=== PATIENT | female | born 1990 | race Caucasian/White ===

== ENCOUNTER 2023-11-16 10:00 | Outpatient (CLI) | payer MEDICAID, SELFPAY ==
[2023-11-16 17:48] LABS: Internal QC Validated? YES +Cl - CLEAR BKGD; Pregnancy, Urine Negative Negative; Record Kit Lot#,Urine Preg 735774
[2023-11-16 17:52] LABS: Hemoglobin A1c 7.2 % (3.8-5.6)
[2023-11-16 17:58] LABS: Anion Gap 10 (5-15); BUN 23 mg/dL (7-18); BUN/Creat Ratio 27.7 RATIO (10-20); Calcium,Total 9.4 mg/dL (8.5-10.1); Chloride 104 mmol/L (98-107); Creatinine, Serum 0.83 mg/dL (0.55-1.02); EST Glomerular Filtration Rate 83 mL/min (>60); Est Glom Filt Rate - Afr Amer 101 mL/min (>60); Glucose 149 mg/dL (74-106); Potassium 3.9 mmol/L (3.5-5.1); Sodium Level 135 mmol/L (136-145)
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
--- NOTE | 2023-11-23 08:27 | PCM.PRE.AN2 ---
ASA Classification* ASA Classification ASA Classification: 3 Assessment & Plan Anesthesia* Anesthesia Assessment Anesthesia Assessment: Discussed sedation and/or anesthesia options, risks, benefits, and alternatives with patient/parents/legal guardian/POA. Questions invited. The patient/parents/legal guardian/POA seems to understand and agrees to proceed with anesthesia plan. Reviewed the physical assessment, medical history, allergy history and patient home medications list prior to surgery/procedure/anesthetic and documented any changes. Performed airway and anesthesia risk assessments. Surgery Canceled Due to: Reason surgery canceled: NOT optimized for surgery Reason patient is NOT optimized for surgery: pt on semi glutide <7 days Anesthesia Type Anesthesia Type: MAC Pre-Assessment Diagnosis/Proposed Procedure Planned Operative Procedure(s): Laparoscopic, bilateral Salpingectomy Anesthesia History Anesthesia History - operations lieutenant: Anesthesia History - operations lieutenant Hx Hospitalization No 11/14/23 09:10 Any Problems With Anesthesia No 11/14/23 09:10 Cholinesterase deficiency No 11/14/23 09:10 You/Your Family Experience No 11/14/23 09:10 fever (hyperthermia) with Relationship Recent Exposure to Contagious Disease Does patient have nerve No 11/14/23 09:10 stimulator Patient instructed to have device shut off --Does patient have Pacemaker or ICD? When Was Last Pacemaker Check QUESTION #4 FULL TEXT: You/Your Family Experience fever (hyperthermia) with Anesthesia Last Oral Intake Last Oral intake: Last Oral Intake NPO since Meds taken in AM with sips of water? Meds patient instructed to take am of surgery PONV PONV - operations lieutenant: PONV - operations lieutenant Female Yes 11/14/23 09:10 HX of Motion Sickness No 11/14/23 09:10 HX of N/V After Surgery No 11/14/23 09:10 Non-Smoker Yes 11/14/23 09:10 Duration of Surgery greater No 11/14/23 09:10 than 60 minutes Number of Risk Factors 2 11/14/23 09:10 PONV Score Moderate Risk 11/14/23 09:10 Respiratory Assessment Respiratory Assessment - operations lieutenant: Respiratory Tract Infection Hx - operations lieutenant Hx Respiratory Tract Infection No 11/14/23 09:10 STOP Sleep Apnea STOP Sleep Apnea - operations lieutenant: STOP Sleep Apnea - operations lieutenant Hx Hypertension No 11/14/23 09:10 Hx Sleep Apnea No 11/14/23 09:10 CPAP BIPAP Do you snore loudly (louder No 11/14/23 09:10 than talking or can be heard Do you often feel tired/ No 11/14/23 09:10 fatigued/ sleepy during daytime? Has anyone observed you stop No 11/14/23 09:10 breathing during sleep? STOP Results Negative 11/14/23 09:10 QUESTION #5 FULL TEXT : Do you snore loudly (louder than talking or can be heard through closed doors)? 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 Specify any problems Hx of Preganancy in last 3 No 11/14/23 09:10 Months Nurse Filling Out Transfusion VCHRISTIN 11/14/23 09:10 & Questions: Date: 11/14/23 11/14/23 09:10 Time: 09:11 11/14/23 09:10 Patient unable to answer at this time (ie. confused, unrespo /Reproduction History /Reproductive History - operations lieutenant: /Reproductive Hx- operations lieutenant Hx Now Gestational Age (in weeks): EDC: Hx Hx Para Hx Section SAB Active Medications Active Medications: Current Medications Generic Name Dose Route Start Last Admin Trade Name Freq PRN Reason Stop Dose Admin Lactated Ringer's 1,000 mls @ 15 mls/hr 11/23/23 08:15 IV .Q48H [facility] Anesthesia Focused Assessment* Airway Assessment Mouth opens: >3 cm Mallampati Score: III Focused Labs Anesthesia Preop lab: CBC CHEMISTRY Potassium 3.9 mmol/L (3.5-5.1) 11/16/23 15:40 Sodium 135 mmol/L (136-145) L 11/16/23 15:40 BUN 23 mg/dL (7-18) H 11/16/23 15:40 Creatinine 0.83 mg/dL (0.55-1.02) 11/16/23 15:40 Glucose 149 mg/dL (74-106) H 11/16/23 15:40 COAG Urine Test Negative Negative 11/16/23 15:40 Review of Systems (Anesthesia) ROS Narrative System reviewed and no additional complaints, except as documented. [facility] Medical History Wears glasses Diabetes Seizures Hypertension Home Medications ?Medication ?Instructions ?Recorded ?Last Taken ?Type carbamazepine 200 mg tablet 200 mg PO TID 11/14/23 11/23/23 History desmopressin 0.2 mg tablet 0.2 mg PO QHS 11/14/23 11/22/23 History divalproex 250 mg tablet,delayed 250 mg PO BID 11/14/23 11/23/23 History release divalproex 500 mg tablet,delayed 500 mg PO TID 11/14/23 11/23/23 History release lisinopril 20 mg tablet 20 mg PO DAILY 11/14/23 11/23/23 History metformin 500 mg tablet,extended 500 mg PO BID 11/14/23 11/22/23 History release 24 hr tirzepatide 5 mg/0.5 mL 5 mg subcut QWEEK 11/14/23 11/22/23 History subcutaneous pen injector (Mounjaro) Allergy/AdvReac Type Severity Reaction Status Date / Time No Known Allergies Allergy Verified 11/23/23 08:16 Surgical History Hx of surgical procedure Social History Smoking Status: Never smoker
== END 2023-11-23 23:59 | disposition home or self-care (01) ==
LOC: AC 11-23 08:28 → PAT 05-01 12:38
PROVIDERS: Anesthesiology; PCP Internal Medicine; Referring Provider Obstetrics & Gynecology; Visit Provider Obstetrics & Gynecology
DX: Z01.818 Encounter for other preprocedural examination (principal); Z53.9 Procedure and treatment not carried out, unspecified reason
CPT/HCPCS: 36415; 80048; 81025; 83036

== ENCOUNTER 2023-12-27 07:59 | Day surgery (SDC) | payer MEDICAID, SELFPAY ==
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
[2023-12-27] VITALS (8 sets, daily range): BP systolic 115–126; BP diastolic 63–95; PULSE 87–94; RESP 16; TEMP 36.2–36.9; O2SAT 92–100; BMI 38.2
--- NOTE | 2023-12-27 | FALS_PTH ---
PATIENT: BENI VILLASEÑOR LOC: [facility] U#:[id number] AGE/SX: 33/F ROOM: RE12/27/[address]: Dr. Olivia Barton, MDDOB: 1990 BED: DIS: 12/27/2023 SPEC #: [id number] RECD: 12/27/23 13:17 STATUS: [place] ANGUS #: [id number] BONITA: 12/27/23 00:[address]: Olivia Barton DEPT: SURGICAL PATHOLOGY RECD BY: Bossman Winchester ENTERED: 12/27/23 13:17 SP TYPE: FALL TUBES OTHR DR: Dr. Nikki Red MD Tissues: Fallopian tube Procedures: Surgery Specimen Level II HEADER OPERATION: Bilateral laparoscopic, salpingectomy PRE-OP DIAGNOSIS: Elective sterilization TISSUE SUBMITTED: Bilateral fallopian tubes MICROSCOPIC DIAGNOSIS Bilateral fallopian tubes, salpingectomy: Bilateral fallopian tubes, no pathologic diagnosis. ASTER: 12/28/2023 MICROSCOPIC DESCRIPTION Slides are reviewed. GROSS DESCRIPTION Received in fixative is one container labeled with the patient's name and designated bilateral fallopian tubes. The specimen consists of bilateral fallopian tubes including fimbrial ends each measuring 5.0 cm in length and 0.5 cm in diameter. The fallopian tubes are not identified as right or left. Sections reveal unremarkable cut surfaces. City Collector sections are submitted in two cassettes with each cassette containing one fallopian tube. / ASTER: 12/27/2023 TC:4 CPT: 87023 x2
--- NOTE | 2023-12-27 08:25 | PCM.PRE.AN2 ---
ASA Classification* ASA Classification ASA Classification: 3 Assessment & Plan Anesthesia* Anesthesia Assessment Anesthesia Assessment: Discussed sedation and/or anesthesia options, risks, benefits, and alternatives with patient/parents/legal guardian/POA. Questions invited. The patient/parents/legal guardian/POA seems to understand and agrees to proceed with anesthesia plan. Reviewed the physical assessment, medical history, allergy history and patient home medications list prior to surgery/procedure/anesthetic and documented any changes. Performed airway and anesthesia risk assessments. Anesthesia Type Anesthesia Type: General (see written pre anesthesia record for full assessment) Anesthesia Focused Assessment* Airway Assessment Mouth opens: >3 cm Mallampati Score: III Focused Labs Anesthesia Preop lab: CBC CHEMISTRY Potassium 3.9 mmol/L (3.5-5.1) 11/16/23 15:40 Sodium 135 mmol/L (136-145) L 11/16/23 15:40 BUN 23 mg/dL (7-18) H 11/16/23 15:40 Creatinine 0.83 mg/dL (0.55-1.02) 11/16/23 15:40 Glucose 149 mg/dL (74-106) H 11/16/23 15:40 COAG Urine Test Negative Negative 11/16/23 15:40 Pre-Assessment Diagnosis/Proposed Procedure Planned Operative Procedure(s): (B) Bilateral Laparoscopic, Salpingectomy Anesthesia History Anesthesia History - supervisor packing: Anesthesia History - supervisor packing Hx Hospitalization No 12/12/23 13:40 Any Problems With Anesthesia No 12/12/23 13:40 Cholinesterase deficiency No 12/12/23 13:40 You/Your Family Experience No 12/12/23 13:40 fever (hyperthermia) with Relationship Recent Exposure to Contagious Disease Does patient have nerve No 12/12/23 13:40 stimulator Patient instructed to have device shut off --Does patient have Pacemaker or ICD? When Was Last Pacemaker Check QUESTION #4 FULL TEXT: You/Your Family Experience fever (hyperthermia) with Anesthesia Last Oral Intake Last Oral intake: Last Oral Intake NPO since Meds taken in AM with sips of water? Meds patient instructed to take am of surgery PONV PONV - supervisor packing: PONV - supervisor packing Female Yes 12/12/23 13:40 HX of Motion Sickness No 12/12/23 13:40 HX of N/V After Surgery No 12/12/23 13:40 Non-Smoker Yes 12/12/23 13:40 Duration of Surgery greater No 12/12/23 13:40 than 60 minutes Number of Risk Factors 2 12/12/23 13:40 PONV Score Moderate Risk 12/12/23 13:40 Respiratory Assessment Respiratory Assessment - supervisor packing: Respiratory Tract Infection Hx - supervisor packing Hx Respiratory Tract Infection No 12/12/23 13:40 STOP Sleep Apnea STOP Sleep Apnea - supervisor packing: STOP Sleep Apnea - supervisor packing Hx Hypertension No 12/12/23 13:40 Hx Sleep Apnea No 12/12/23 13:40 CPAP BIPAP Do you snore loudly (louder No 12/12/23 13:40 than talking or can be heard Do you often feel tired/ No 12/12/23 13:40 fatigued/ sleepy during daytime? Has anyone observed you stop No 12/12/23 13:40 breathing during sleep? STOP Results Negative 12/12/23 13:40 QUESTION #5 FULL TEXT : Do you snore loudly (louder than talking or can be heard through closed doors)? 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 Specify any problems Hx of Preganancy in last 3 No 12/12/23 13:40 Months Nurse Filling Out Transfusion VCHRISTIN 12/12/23 13:40 & Questions: Date: 12/12/23 12/12/23 13:40 Time: 13:41 12/12/23 13:40 Patient unable to answer at this time (ie. confused, unrespo /Reproduction History /Reproductive History - supervisor packing: /Reproductive Hx- supervisor packing Hx Now No 12/12/23 13:40 Gestational Age (in weeks): EDC: Hx Hx Para Hx Section SAB No 12/12/23 13:40 Active Medications Active Medications: Current Medications Generic Name Dose Route Start Last Admin Trade Name Robbin PRN Reason Stop Dose Admin Lactated Ringer's 1,000 mls @ 15 mls/hr 12/27/23 08:15 IV .Q48H [facility] Medical History Wears glasses Diabetes Seizures Hypertension Home Medications ?Medication ?Instructions ?Recorded ?Last Taken ?Type carbamazepine 200 mg tablet 200 mg PO TID 11/14/23 11/23/23 History desmopressin 0.2 mg tablet 0.2 mg PO QHS 11/14/23 11/22/23 History divalproex 250 mg tablet,delayed 250 mg PO BID 11/14/23 11/23/23 History release divalproex 500 mg tablet,delayed 500 mg PO TID 11/14/23 11/23/23 History release lisinopril 20 mg tablet 20 mg PO DAILY 11/14/23 11/23/23 History metformin 500 mg tablet,extended 500 mg PO BID 11/14/23 11/22/23 History release 24 hr tirzepatide 5 mg/0.5 mL 5 mg subcut QWEEK 11/14/23 11/22/23 History subcutaneous pen injector (Mounjaro) escitalopram oxalate 10 mg tablet 10 mg PO DAILY 12/12/23 Unknown History medroxyprogesterone 150 mg/mL 150 mg IM 12/12/23 Unknown History intramuscular syringe Allergy/AdvReac Type Severity Reaction Status Date / Time No Known Allergies Allergy Verified 12/12/23 13:34 Surgical History Hx of surgical procedure Social History Smoking Status: Never smoker Review of Systems (Anesthesia) ROS Narrative System reviewed and no additional complaints, except as documented.
[2023-12-27 08:39] LABS: Internal QC Validated? YES +Cl - CLEAR BKGD; Pregnancy, Urine Negative Negative
--- NOTE | 2023-12-27 08:40 | DCINST_ITS ---
Discharge Instructions Diet Discharge Diet: No restrictions Activity May resume sexual activity in: 1-2 weeks Lifting Restrictions: 20-25 lbs Dressing / Incision Call your doctor if your incision/area has: Continuous Slow Oozing, Sudden Increased Bleeding, Increased Pain/ Swelling, Increased Redness, Foul Smelling Discharge and Swelling at the incision site Call your doctor if you observe: Fever of 101 or Higher, Inability to urinate, Inability to have a bowel movement, Using more than 1 pad per hour and Uncontrolled pain Additional Dressing/Incision Instructions:: You have skin glue over your incision sites, do not pick off. You may shower and let the soap and water run over the incision sites and dab dry. Follow Up Care Please Follow Up With: Olivia Barton MD When: 1-2 weeks post OP if you need an appointment please call [phone] Test Results: Test results from this visit will be discussed in further detail at your follow- up appointment, if applicable. Discharge Plan Admission Attending Provider: Olivia Barton Primary Care Provider: Nikki Red Instructions Print Language: Liberian Discharge Orders/Prescriptions Prescriptions: No Action escitalopram oxalate 10 mg tablet 10 mg PO DAILY medroxyprogesterone 150 mg/mL syringe 150 mg IM .Q12WK divalproex 250 mg tablet,delayed release (DR/EC) 250 mg PO BID divalproex 500 mg tablet,delayed release (DR/EC) 500 mg PO TID metformin 500 mg tablet extended release 24 hr 500 mg PO BID lisinopril 20 mg tablet 20 mg PO DAILY desmopressin 0.2 mg tablet 0.2 mg PO QHS carbamazepine 200 mg tablet 200 mg PO TID Mounjaro 5 mg/0.5 mL pen injector 5 mg subcut QWEEK Referrals / Follow Up: Nikki Red MD [Primary Care Provider] - Disposition Disposition (needs filled in before D/C Order can be placed): Home, Self Care
[2023-12-27] MEDS: Lactated Ringers 1,000 ML 15 ML IV (08:52)
[2023-12-27 09:02] LABS: Hematocrit 39.6 % (37-47); Hemoglobin 13.2 g/dL (12.0-15.0); Mean Corp Hgb Conc 33.3 g/dL (32-36); Mean Corpuscular Hgb 28.9 pg (27.0-32.0); Mean Corpuscular Volume 86.8 fL (81-99); Mean Platelet Vol. 9.3 fl (6.2-12.0); Platelet Count 220 K/mm3 (150-450); RBC Distribution Width CV 13.7 % (11.6-14.6); RBC Distribution Width SD 43.5 fl (35.1-43.9); Red Blood Count 4.56 M/mm3 (4.2-5.4); White Blood Count 4.2 K/mm3 (4.4-11.0)
[2023-12-27 09:36] LABS: Bedside Glucose 252 mg/dL (74-106)
[2023-12-27] MEDS: Bupivacaine 0.5% PF 10 ML VIAL (09:51)
--- NOTE | 2023-12-27 10:11 | PCM.OPRPT ---
Report of Operation Date of Procedure: 12/27/23 Pre-Operative Diagnosis: desires sterilization Post-Operative Diagnosis: same Surgery/Procedure Performed:: Laparoscopic bilateral salpingectomy Description of Surgical Findings:: Normal tubes, ovaries and uterus Surgeon: Olivia Barton health and safety trainer: None Type of Anesthesia: General and Local Special Medications: 0.5% marcaine Specimen's removed: bilateral fallopian tubes Drains: none Estimated Blood Loss (mL): <5cc Fluids Replaced: 800cc Description of Procedure: After informed consent was obtained patient was taken to the operating room she was placed in supine position she was given anesthesia. She was then placed in the [facility] stirrups and she was prepped and draped in normal sterile fashion. Bladder was drained prior to the start of procedure. At this time attention was turned to the vaginal portion where weighted speculum placed at posterior fornix vagina single-tooth tenaculum was used to gently grasp the internal the cervix. uterus was gently sounded to approximately 7cm. Uterine manipulator was placed without difficulty. Legs then placed in parallel with the abdomen the tenaculum and the weighted speculum were removed. 2 towel clamps were placed at level of umbilicus. Marcaine was injected infraumbilical and a small incision was made. The 5 mm trocar was placed under direct visualization. CO2 gas was used to insufflate the intra-abdominal cavity. Upon inspection no gross abnormalities appreciated- the uterus tubes and ovaries appeared to be normal. At this time then the LLQ and RLQ ports were placed First Marcaine was injected and small incision was made a knife and the 5 mm trocars were placed. At this time then tubes were traced back to the fimbriated ends. Enseal was used to coagulate and ligate along mesosalpinx bilaterally until tubes removed completely. Good hemostasis was appreciated. At this time procedure was deemed complete successful. The gas was desufflated on from the intra-abdominal cavity. The trochars were removed. Skin was closed using 4-0 Monocryl in a subcutaneous fashion. Dermabond glue was placed. Instrument lap and needle counts were correct ?2. The uterine manipulator was removed. Vaginal sweep was performed it was negative. There were no complications anticipated normal postoperative course for this patient. Grafts/Implants Used: none Procedure Start Time: 09:51 Procedure Stop Time: 10:10 Complications none Admit VTE Documentation VTE Present on Admission: Yes VTE Mechan Device Prophylaxis: SCD's VTE Pharm Prophylaxis ordered?: No Reason prophylaxis not ordered:: Procedure Not Indicated
--- NOTE | 2023-12-27 10:30 | PCM.POST.ANE ---
Anesthesia: Postop Eval I Current Vital Signs Temperature: 98.4 F Pulse Rate: 92 Blood Pressure: 118/78 Respiratory Rate: 16 Pulse Ox: 100 Oxygen Delivery Method: Simple Mask Oxygen Flow Rate (L/min): 6 Assessment Airway patent: Yes Spontaneous unlabored respirations: Yes Mental status: Awake and Calm nausea: No Vomiting: No Anesthesia Complication: No Fluid Hydration Crystalloid volume administer (ml): 800 Total IV fluid infused: 800 Progress Note Anesthesia document: Postop Eval 1 completed: Yes
[2023-12-27] MEDS: HYDROcodone Bitartrate/Apap 5/325 Tablet PO (11:07)
--- NOTE | 2023-12-27 11:17 | POSTOPAN2_ITS ---
Anesthesia Postop Eval I Sum Postop Eval Completion status Anesthesia document: Postop Eval 1 completed: Yes Anesthesia Postop Eval I Summary Anesthesia Postop Eval I Summary: Anesthesia Postop Eval I: Assessment Summary Airway patent Yes 12/27/23 10:33 [email or web address] Spontaneous unlabored Yes 12/27/23 10:33 [email or web address] respirations Mental status Awake,Calm 12/27/23 10:33 [email or web address] nausea No 12/27/23 10:33 [email or web address] Vomiting No 12/27/23 10:33 DESIGNER/WRITERMARJORIE Anesthesia Postop Eval I: Fluid Summary Crystalloid volume administer 800 12/27/23 10:33 [email or web address] (ml) Colloids volume administered ( ml) Blood Product volume administered (ml) Total IV fluid infused 800 12/27/23 10:33 DESIGNER/WRITERMARJORIE Anesthesia Postop Eval I: Summary Notes Anesthesia Complication No 12/27/23 10:33 DESIGNER/WRITERMARJORIE Anesthesia Complication Comment: Post-operative progress note Anesthesia: Postop Eval II Evaluation Mental status: Awake Pain Level: 0 nausea: No Vomiting: No
--- NOTE | 2023-12-27 11:17 | PCM.POSTANE2 ---
Anesthesia Postop Eval I Sum Postop Eval Completion status Anesthesia document: Postop Eval 1 completed: Yes Anesthesia Postop Eval I Summary Anesthesia Postop Eval I Summary: Anesthesia Postop Eval I: Assessment Summary Airway patent Yes 12/27/23 10:33 [email or web address] Spontaneous unlabored Yes 12/27/23 10:33 [email or web address] respirations Mental status Awake,Calm 12/27/23 10:33 [email or web address] nausea No 12/27/23 10:33 [email or web address] Vomiting No 12/27/23 10:33 DREDGE CAPTAINMARJORIE Anesthesia Postop Eval I: Fluid Summary Crystalloid volume administer 800 12/27/23 10:33 [email or web address] (ml) Colloids volume administered ( ml) Blood Product volume administered (ml) Total IV fluid infused 800 12/27/23 10:33 DREDGE CAPTAINMARJORIE Anesthesia Postop Eval I: Summary Notes Anesthesia Complication No 12/27/23 10:33 DREDGE CAPTAINMARJORIE Anesthesia Complication Comment: Post-operative progress note Anesthesia: Postop Eval II Evaluation Mental status: Awake Pain Level: 0 nausea: No Vomiting: No
== END 2023-12-27 11:43 | disposition home or self-care (01) ==
LOC: SDC 08:04 → AC 08:05
PROVIDERS: PCP Internal Medicine; Referring Provider Obstetrics & Gynecology; Visit Provider Obstetrics & Gynecology
PROC: (CPT 58661; principal; 2023-12-27 09:25)
DX: Z30.2 Encounter for sterilization (principal); E11.9 Type 2 diabetes mellitus without complications; I10 Essential (primary) hypertension
CPT/HCPCS: 58661; 00840; 81025; 82962; 85027; 88302; J7120; C1760; J2405